=== PATIENT | male | born 1995 ===

== ENCOUNTER 2024-05-16 08:24 | Emergency (ER) | payer MEDICAID ==
[~2024-05-16] VITALS: Ht 170.2 cm; Wt 106.4 kg
[2024-05-16 08:36] VITALS: BP 177/109; PULSE 121; RESP 18; TEMP 97.8; O2SAT 98
== END 2024-05-16 11:02 | disposition left against medical advice (07) ==
LOC: ER 08:25
DX: M54.9 Dorsalgia, unspecified (principal); Z53.21 Procedure and treatment not carried out due to patient leaving prior to being seen by health care provider